=== PATIENT | male | born 1975 | race Caucasian/White ===

== ENCOUNTER 2021-11-24 18:48 | Emergency (ER) | payer SELFPAY ==
[2021-11-24 19:03] VITALS: BP 130/88; PULSE 72; RESP 18; TEMP 36.1; O2SAT 96
--- NOTE | 2021-11-24 19:04 | ED.GENADULT ---
HPI - General Adult General Chief complaint: Unspecified Stated complaint: swollen penis Source: patient Mode of arrival: ambulatory Limitations: no limitations History of Present Illness HPI narrative: Ubaldo is a 46M with a PMH of genital herpes that presented to the ER with an acute flare. He had one a couple days ago and took 3 days of meds but it soon came back. He denies any fevers, chills, N/V, CP, hematuria and dysuria. Related Data Home Medications Medication Instructions Recorded Confirmed No Home Medications 11/24/21 11/24/21 Allergies Allergy/AdvReac Type Severity Reaction Status Date / Time No Known Allergies Allergy Verified 11/24/21 19:05 Review of Systems Review of Systems: All systems reviewed & are unremarkable except as noted in HPI and below Exam Const: General: cooperative, healthy appearing, comfortable and no acute distress HENMT: Head: normal to inspection Eyes: General: appearance normal, both eyes and all related structures Neck: Neck: normal visual inspection Chest: Chest palpation & inspection: normal inspection of the chest Resp: Effort & Inspection: normal respiratory effort Auscultation: clear to auscultation bilaterally Cardio: Rate: regular rate GI: Inspection: normal to inspection : Other: On the right distal shaft of penis there were several open erythamatous blisters Skin: General skin exam: normal color and no rashes or lesions noted Neuro: General: oriented to person, oriented to place and oriented to time Course Course Emergency Course: Given first dose of valtrexin ED Discharge Plan Discharge Clinical Impression: Genital herpes in men Patient Disposition: Home, Self-Care Condition: Stable Instructions: Genital Herpes Simplex (ED) Prescriptions: No Action No Home Medications RF: 0 Follow-up/Referrals: UNKNOWN,DOCTOR [Primary Care Provider] -
[2021-11-24] MEDS: valACYclovir HCL 500 MG TABLET 1000 MG (19:14)
[2021-11-24 19:17] VITALS: BP 144/80; PULSE 72; RESP 20; TEMP 36.1; O2SAT 95
== END 2021-11-24 19:18 | disposition home or self-care (01) ==
PROVIDERS: Emergency Provider Family Medicine
DX: A60.00 Herpesviral infection of urogenital system, unspecified (principal)
CPT/HCPCS: 99283; A9270